=== PATIENT | female | born 1975 | race Caucasian/White ===

== ENCOUNTER 2022-04-25 13:55 | Emergency (ER) | payer OTHER, SELFPAY ==
[2022-04-25 14:19] VITALS: BP 141/84; PULSE 98; TEMP 36.8; O2SAT 98; BMI 25.8
--- NOTE | 2022-04-25 14:47 | ED.BACK ---
HPI - Back Pain/Injury General Chief Complaint: Back Injury/Pain Stated Complaint: Lower back pain Time Seen by Provider: 04/25/22 14:26 History of Present Illness HPI Narrative: 46-year-old woman presenting to the emergency department with her with concern of intense pain in the left buttock left posterior upper thigh. Does have a history of disc herniations. They present MRI report from 2013 showing lumbar disc herniation/impingement. History also of the cervical spine issues as well. Has had extensive treatment and injections in the past. Has also received treatment for piriformis muscle involvement on the left. Has been looking for a provider, physical therapy provider to provide myofascial release as that had been the most helpful thing historically. Has been trying oral therapy at home in the form of cyclobenzaprine and ibuprofen and Tylenol. No effect. Not able to sleep anymore. Rating high on pain scale. No new weakness or loss of sensation. No loss of bowel or bladder control. May have flared it a few nights ago running up and down stairs in an effort to stop a plumbing leak. Has not had opiate treatment generally. Many years ago has received opiates and seems to recall nausea at 1 point. Notes that prednisone typically isn't very helpful. She has been doing exercises. Related Data Home Medications Medication Instructions Recorded Confirmed baclofen 10 mg tablet mg 04/25/22 lisinopril 10 mg tablet mg 04/25/22 lorazepam 0.5 mg tablet mg 04/25/22 Allergies Allergy/AdvReac Type Severity Reaction Status Date / Time amoxicillin [From Augmentin] Allergy Unknown Verified 04/25/22 14:23 clavulanic acid Allergy Unknown Verified 04/25/22 14:23 [From Augmentin] Review of Systems Status of ROS: Reports: 6 or more systems reviewed and unremarkable except as noted in History and below PFSH PFS Social History Smoking Status: Never smoker Do you use any of these nicotine containing products: None Second hand tobacco smoke exposure: No How often do you have a drink containing alcohol: never How often do you have six or more drinks on one occasion: Never AUDIT-C Alcohol total score: 0 Non-prescribed substance use: denies use Exam Narrative: Exam Narrative: Pleasant. Overall calm but seems generally restless in apparent discomfort particularly with moving her left leg. Breathing easily. Lying flat on her back knees bent feet flat on the bed. Rotates up/rolls to side for exam. Very tender to palpation in the mid left buttock piriformis area. Also reports pain in the mid low/lumbar spine. Positive straight leg raise on the left. No apparent sensory loss. Const: Vital Signs, click to edit/add: Vital Signs - 24 hr 04/25/22 14:19 04/25/22 15:02 04/25/22 15:19 Temperature 98.2 F Pulse Rate [Left P ulse Oximeter] 98 90 66 Blood Pressure [Ri ght Upper Arm] 141/84 H Pulse Oximetry 98 98 96 Oxygen Delivery Me thod Room Air Room Air Room Air Documenting provider has reviewed patient's vital signs: yes Course Course Hospital Course: would appreciate some relief of pain here in the ER Reevaluation(s) Reevaluation #1: Zofran and hydromorphone helped a good deal though pain still present. Vital Signs Vital signs: Initial Vital Signs Temperature 98.2 F 04/25/22 14:19 Temperature Source Temporal Artery Scan 04/25/22 14:19 Pulse Rate 98 04/25/22 14:19 Blood Pressure 141/84 H 04/25/22 14:19 Blood Pressure Mean 103 04/25/22 14:19 Blood Pressure Position Standing 04/25/22 14:19 Pulse Oximetry 98 04/25/22 14:19 Oxygen Delivery Method 04/25/22 14:19 Vital Signs Temperature 98.2 F 04/25/22 14:19 Pulse Rate 98 04/25/22 14:19 Blood Pressure 141/84 H 04/25/22 14:19 Pulse Oximetry 98 04/25/22 14:19 Oxygen Delivery Method 04/25/22 14:19 Temperature 98.2 F 04/25/22 14:19 Pulse Rate 66 04/25/22 15:19 Blood Pressure 141/84 H 04/25/22 14:19 Pulse Oximetry 96 04/25/22 15:19 Oxygen Delivery Method 04/25/22 15:19 MDM - Back Pain/Injury MDM Narrative Medical decision making narrative: We discussed options, she would like some relief of pain before departing. Provide medications from [facility]. Injection preceded by antiemetic. Medical Records Attestation: I reviewed the patient's medical records. Lab Data Attestation: I reviewed the patient's lab results. Discharge Plan Discharge Clinical Impression: Radicular low back pain, Piriformis syndrome Patient Disposition: Home w/ Parent or Adult Condition: Improved Additional Instructions: Yes. Do follow-up with that chiropractor who does myofascial release. Otherwise locally there are some other chiropractors, one named Femi Rivera [phone] and another Brandan Ojeda [phone]. There are also some doctors of osteopathy available locally at the [facility] -- doctors Juliana and Ricky. Can combine ibuprofen with this Percocet. Cyclobenzaprine can also be combined; additionally sedating. Do stay well hydrated. Sure, supplementation with MiraLax would not hurt. But otherwise a senna containing product would be a good idea on the days that you are using the opiate. Maximal acetaminophen dosing is 1000 mg per dose. Keep in mind that each tablet of Percocet has 325 mg of acetaminophen in it. Is Zofran isn't working and experiencing too much nausea with the opiate, could pretreat opiate by 30 minutes to 60 minutes with diphenhydramine to diminish potential histamine effect. Take the prednisone as 60 mg daily for 3 days then 40 mg daily for 3 days and 20 mg daily for 3 days. Prescriptions: No Action lorazepam 0.5 mg tablet Label Comments: 0.5 MG PO DAILY PRN baclofen 10 mg tablet Label Comments: TAKE 1 TABLET BY MOUTH THREE TIMES DAILY NEEDED lisinopril 10 mg tablet Label Comments: TAKE 1 TABLET BY MOUTH DAILY Follow Up/Referrals: Pat Mancilla PA-C [Primary Care Provider] - Stand Alone Forms: [employer] Info Instructions
[2022-04-25] MEDS: ONDANSETRON ODT 4 MG TAB PO (14:56)
[2022-04-25] MEDS: HYDROmorphone 0.5 mg/0.5 ml inj 1 MG IM (14:57)
[2022-04-25 15:02] VITALS: PULSE 90; O2SAT 98
[2022-04-25 15:19] VITALS: PULSE 66; O2SAT 96
== END 2022-04-25 15:30 | disposition home or self-care (01) ==
PROVIDERS: Emergency Provider Family Medicine; PCP Physician Assistant Medical
DX: M54.16 Radiculopathy, lumbar region (principal)
CPT/HCPCS: 96372; 99283; 99284; A9270; J1170

== ENCOUNTER 2023-03-28 12:55 | Outpatient (CLI) | payer OTHER, SELFPAY ==
--- NOTE | 2023-03-28 13:00 | CRLHL7_ITS ---
For Patients: As a result of the Cures Act, medical imaging exams and procedure reports are released immediately into your electronic medical record. You may view this report before your referring provider. If you have questions, please contact your health care provider. BILATERAL SCREENING MAMMOGRAM WITH COMPUTER-AIDED DETECTION AND TOMOSYNTHESIS TECHNIQUE: CC and MLO views were obtained. These mammographic images have been obtained using full-field digital technique. These mammographic images were interpreted with the benefit of computer-aided detection. Breast Tomosynthesis was used in this interpretation. COMPARISON FILM: 12/01/20, 11/26/18, 08/03/17. FINDINGS: The breasts are heterogeneously dense, which may obscure small masses IMPRESSION: There is no radiographic evidence for malignancy. ASSESSMENT: BI-RADS Category 2: Benign RECOMMENDATION: Routine screening mammogram in 1 year. A lay language report of this examination will be provided to the patient. Wiliam Benito M.D. Diagnostic/Nuclear Medicine Radiologist [email or web address] JESUS/Dictated by: Wiliam Benito MD @ 03/29/2023 10:37:00 AM (Electronically Signed)
== END 2023-03-28 12:56 | disposition home or self-care (01) ==
LOC: MAMMO 12:56
PROVIDERS: PCP Physician Assistant Medical; Visit Provider Physician Assistant Medical
DX: Z12.31 Encounter for screening mammogram for malignant neoplasm of breast (principal); R92.2 Inconclusive mammogram
CPT/HCPCS: 77063; 77067

== ENCOUNTER 2023-09-28 08:04 | Outpatient (CLI) | payer OTHER, SELFPAY | END 2023-09-28 08:05 | disposition home or self-care (01) | PROVIDERS: PCP Physician Assistant Medical; Visit Provider Physician Assistant Medical | DX: I10 Essential (primary) hypertension (principal) | CPT/HCPCS: 80053; 80061; 84443 ==

== ENCOUNTER 2024-04-12 07:24 | Outpatient (CLI) | payer OTHER, SELFPAY ==
--- OUTSIDE RECORDS SUMMARY | 2024-04-12 07:26 | XMS_ITS | Clinical Summary ---
Author Organization [facility] Address [place], [place] [address] Care Team Providers Care Interactive Media Project Manager Name Role Phone Clinic, No Pcp Or Primary Care Provider Unavaila ble Allergies Active Allergy Reactions Criticality Noted Date Comments Amoxicillin-Pot Clavulanate GI Upset 05/11/20 22 Medications Medication Sig Dispensed Refills Start Date End Date Status baclofen (LIORESAL) 10 mg tablet Take 10 mg by mouth 3 times daily if needed. 10/29/2021 Active gabapentin (NEURONTIN) 300 mg capsule Take 300 mg by mouth at bedtime. 05/03/2022 Active lisinopriL (PRINIVIL; ZESTRIL) 10 mg tablet Take 10 mg by mouth once daily. 05/05/2022 Active LORazepam (ATIVAN) 0.5 mg tab Take 0.5 mg by mouth once daily. 12/15/2021 Active HYDROcodone-acetami nophen (VICODIN) 5-300 mg per tabletIndications:A cute midline low back pain with left-sided sciatica Take 1 Tablet by mouth every 6 hours if needed for Pain. Max acetaminophen dose: 4000mg in 24 hrs. 20 Tablet 05/11/2022 Active cyclobenzaprine (FLEXERIL) 10 mg tabletIndications:L umbar disc herniation with radiculopathy 1 tab by mount up at bedtime as needed for muscle spasm. May make you drowsy/ less alert. 30 Tablet 09/01/2022 Active Active Problems Problem Noted Date Diagnosed Date Lumbar disc herniation with radiculopathy 2021 Overview: Apr 2022: Recurrence of left leg weakness. Repeat lumbar MRI shows L5-S1 left- sided lumbar disc herniation with left S1 nerve root impingement. Immunizations Name Administration Dates Next Due Hepatitis A (Adult) 08/31/1998,01/09/1998 Hepatitis B (Adult) 08/31/1998,01/09/1998 Influenza, IIV3 (Age 6-35 mos) 06/10/2010 Td (Age >=7 Years) 08/24/2017,08/22/1997 Tdap 05/13/2009 Social History Tobacco Use Types Packs/Day Years Used Date Smoking Tobacco: Never Smokeless Tobacco: Never Tobacco Cessation:Counseling Given: Yes Alcohol Use Standard Drinks/Week Comments Never 0 (1 standard drink = 0.6 oz pur e alcohol) Social Connections Answer Date Recorded Frequency of Communication with Friends and Fami ly Not on file 05/11/2022 Sex and Gender Information Value Date Recorded Sex Assigned at Not on file Gender Identity Not on file Sexual Orientation Not on file Obstetrics History Last Filed Vital Signs Vital Sign Reading Time Taken Comments Blood Pressure 137/85 07/12/2022 3:24 PM [employer]AREHOUSE HELPER Pulse 101 07/12/2022 3:21 PM [employer]HOUSE HELPER Temperature - - Respiratory Rate - - Oxygen Saturation 97% 05/11/2022 11:17 AM CDT Inhaled Oxygen Concentration - - Weight 77.3 kg (170 lb 6.4 oz) 07/12/2022 3:21 P M [employer]PER Height - - Body Mass Index - - Plan of Treatment Health Maintenance Due Date Last Done Comments Depression screening for age 12+ 1987 HIV for age 15-65 1990 BMI (ht and wt on same day) for age 18+ 1993 Hepatitis C screening for ag e 18-79 1993 Pap test for age 21-65 1996 Colonoscopy through age 75 2020 Lipids for age 45-75 2020 Mammogram for age 45-75 2020 COVID-19 vaccine series (2022- season) 2023 01/03/2021, 12/15/2020 Influenza for age 9-49 04/07/2024 Tetanus booster 08/24/2027 08/24/2017, 05/13/2009, 08/22/1997 Tdap Completed 05/13/2009 Pneumococcal series for age 6-64 Aged Out No longer eligible b ased on patient's age to complete this topic Care Teams Interactive Media Project Manager Relationship Specialty Start Date End Date Clinic, No Pcp Or . PCP - General 05/09/22
--- NOTE | 2024-04-12 08:40 | W.ANESCHARGE ---
Anesthesia Charges Start Date/Time Anesthesia Start Date: 04/12/24 Anesthesia Start Time: 08:03 Stop Date/Time Anesthesia Stop Date: 04/12/24 Anesthesia Stop Time: 08:37
--- NOTE | 2024-04-12 09:16 | W.ANESCHARGE ---
Anesthesia Charges Start Date/Time Anesthesia Start Date: 04/12/24 Anesthesia Start Time: 08:03 Stop Date/Time Anesthesia Stop Date: 04/12/24 Anesthesia Stop Time: 08:37
== END 2024-04-12 07:25 | disposition home or self-care (01) ==
LOC: OP CLINIC 07:24
PROVIDERS: PCP Physician Assistant Medical; Visit Provider Surgery
DX: Z12.11 Encounter for screening for malignant neoplasm of colon (principal); D12.2 Benign neoplasm of ascending colon; D12.3 Benign neoplasm of transverse colon; K64.4 Residual hemorrhoidal skin tags
CPT/HCPCS: 00811; 45385; 88305; J2405; J2704

== ENCOUNTER 2024-10-03 07:49 | Outpatient (CLI) | payer OTHER, SELFPAY | END 2024-10-03 07:50 | disposition home or self-care (01) | LOC: FRMREF 07:50 | PROVIDERS: PCP Physician Assistant Medical; Visit Provider Physician Assistant Medical | DX: N95.1 Menopausal and female climacteric states (principal); F41.9 Anxiety disorder, unspecified; C43.30 Malignant melanoma of unspecified part of face; Z87.74 Personal history of (corrected) congenital malformations of heart and circulatory system | CPT/HCPCS: 80053; 80061; 83001; 84443 ==

== ENCOUNTER 2024-12-13 08:00 | Outpatient (CLI) | payer OTHER, SELFPAY | END 2024-12-13 08:01 | disposition home or self-care (01) | LOC: RAD 08:02 | PROVIDERS: PCP Physician Assistant Medical; Visit Provider Physician Assistant Medical | DX: Z87.74 Personal history of (corrected) congenital malformations of heart and circulatory system (principal) | CPT/HCPCS: 93306 ==